=== PATIENT | male | born 1965 | race Two or more races ===

== ENCOUNTER 2018-11-14 09:39 | Emergency (ER) | payer OTHER ==
[~2018-11-14] VITALS: Ht 175.3 cm; Wt 74.3 kg
[2018-11-14] MEDS ORDERED: ROBITUSSIN AC (10:09)
[2018-11-14] MEDS ORDERED: OSEL75CA PO (10:09)
[2018-11-14 10:27] LABS: BASOPHILS # (AUTO) 0.03 x10^3/uL (0-0.1); BASOPHILS % (AUTO) 0 % (0-1); EOSINOPHILS # (AUTO) 0.02 x10^3/uL (0-0.4); EOSINOPHILS % (AUTO) 0 % (1-7); LYMPHOCYTES # (AUTO) 0.89 x10^3/uL (1-3.4); LYMPHOCYTES % (AUTO) 12 % (22-44); MD NO; MEAN CORPUSCULAR HEMOGLOBIN 29.1 pg (27.5-34.5); MEAN CORPUSCULAR HGB CONC 33.7 g/dL (33.2-36.2); MEAN CORPUSCULAR VOLUME 86.4 fL (81-97); MEAN PLATELET VOLUME 7.7 fL (7.4-10.4); MONOCYTES # (AUTO) 0.88 x10^3/uL (0.2-0.8); MONOCYTES % (AUTO) 12 % (2-9); NEUTROPHILS # (AUTO) 5.79 x10^3/uL (1.8-6.8); NEUTROPHILS % (AUTO) 76 % (42-75); PLATELET COUNT 209 x10^3/uL (130-400); RED BLOOD COUNT 5.23 x10^6/uL (4.38-5.82); RED CELL DISTRIBUTION WIDTH 13.5 % (9.4-14.8)
[2018-11-14] MEDS ORDERED: KETOROLAC 30 MG/1 ML IM ONE (10:30)
[2018-11-14 10:38] LABS: ALANINE AMINOTRANSFERASE 54 U/L (12-78); ALBUMIN 3.3 g/dL (3.4-5.0); ANION GAP 6 mmol/L (5-15); CALCIUM 8.5 mg/dL (8.5-10.1); CHLORIDE 101 mmol/L (98-107); CREATININE 0.87 mg/dL (0.7-1.3)
[2018-11-14 10:42] LABS: ALKALINE PHOSPHATASE 65 U/L (45-117); BILIRUBIN,TOTAL 1.2 mg/dL (0.2-1.0); TOTAL PROTEIN 7.2 g/dL (6.4-8.2); TROPONIN I < 0.015 ng/mL (0.000-0.045)
[2018-11-14] MEDS ORDERED: KETOROLAC 30 MG/1 ML ONE (10:43)
[2018-11-14] MEDS ORDERED: OMNIPAQUE 350 MG/ML, 100ML BOTTLE ONE (11:29)
[2018-11-14] MEDS ORDERED: SODIUM CHLORIDE FLUSH 10ML SYR IVF ONE (11:30)
--- NOTE | 2018-11-14 11:44 | NUR ---
CHART UP FOR MD RECHECK. PT AWARE.
[2018-11-14] MEDS ORDERED: CEFTRIAXONE PMX 1GM/50ML 50 ML ONE (11:47)
[2018-11-14] MEDS ORDERED: CEFTRIAXONE PMX 1GM/50ML 50 ML IVPB ONE (12:00)
[2018-11-14 12:13] VITALS: BP 103/73
== END 2018-11-14 12:17 | disposition home or self-care (01) ==
LOC: ED 10:30
DX: R07.89 Other chest pain (principal); J18.1 Lobar pneumonia, unspecified organism; R06.00 Dyspnea, unspecified
CPT/HCPCS: 36415; 71046; 71275; 80053; 84484; 85025; 85379; 93005; 96365; 96372; 99284; J0696; J1885; Q9967

== ENCOUNTER 2019-06-25 21:47 | Emergency (ER) | payer OTHER ==
[~2019-06-25] VITALS: Ht 177.8 cm; Wt 80.0 kg
[~2019-06-25 21:47] MED LIST: OSEL75CA26 PO; ROBITUSSIN AC
[2019-06-25 21:56] VITALS: BP 124/78
[2019-06-25] MEDS ORDERED: HYDROcodone/APAP 5/325 TABLET PO ONE (22:30)
[2019-06-25] MEDS ORDERED: HYDROcodone/APAP 5/325 TABLET ONE (22:31)
--- NOTE | 2019-06-25 22:35 | NUR ---
PT C/O RIGHT SIDE MOUTH DENTAL PAIN AND SWELLING STARTING YESTERDAY AND GOT WORSE TODAY. PAIN MEDS ADMIN PER OCT.
== END 2019-06-25 22:42 | disposition home or self-care (01) ==
LOC: ED 22:30
DX: K08.89 Other specified disorders of teeth and supporting structures (principal)
CPT/HCPCS: 99283

== ENCOUNTER 2019-10-27 23:11 | Emergency (ER) | payer OTHER ==
[~2019-10-27] VITALS: Ht 160 cm; Wt 79.3 kg
--- NOTE | 2019-10-27 23:30 | NUR ---
THIS IS A 54 YO M W/ C/O PAIN THAT RADIATES FROM LEFT CHEST TO THROAT, DOWN TO EPIGASTRIC AREA. PT REPORTS SOUR TASTE IN MOUTH. PT STATES THIS STARTED 2 DAYS AGO ALONG WITH DIAPHORESIS. VS STABLE, NADN. PT CONNECTED TO ALL MONITORING W/ CALL LIGHT IN REACH. IN ROOM FOR ED EVAL.
[2019-10-27] MEDS ORDERED: MAALOX/HYOSCYAMINE/LIDOCAINE 45 ML BTL ONE (23:37)
[2019-10-27] MEDS ORDERED: FAMOTIDINE 20 MG TABLET ONE (23:37)
[2019-10-27 23:40] VITALS: BP 125/81
--- NOTE | 2019-10-27 23:40 | NUR ---
PT MEDICATED PER EMAR. LAB IN ROOM.
[2019-10-27 23:53] LABS: BASOPHILS # (AUTO) 0.04 x10^3/uL (0-0.1); BASOPHILS % (AUTO) 1 % (0-1); EOSINOPHILS % (AUTO) 2 % (1-7); LYMPHOCYTES # (AUTO) 2.48 x10^3/uL (1-3.4); LYMPHOCYTES % (AUTO) 36 % (22-44); MD NO; MEAN CORPUSCULAR HEMOGLOBIN 29.6 pg (27.5-34.5); MEAN CORPUSCULAR HGB CONC 33.5 g/dL (33.2-36.2); MEAN CORPUSCULAR VOLUME 88.3 fL (81-97); MEAN PLATELET VOLUME 8.2 fL (7.4-10.4); MONOCYTES # (AUTO) 0.69 x10^3/uL (0.2-0.8); MONOCYTES % (AUTO) 10 % (2-9); NEUTROPHILS # (AUTO) 3.54 x10^3/uL (1.8-6.8); NEUTROPHILS % (AUTO) 52 % (42-75); PLATELET COUNT 226 x10^3/uL (130-400); RED BLOOD COUNT 5.69 x10^6/uL (4.38-5.82); RED CELL DISTRIBUTION WIDTH 13.8 % (9.4-14.8)
[2019-10-27 23:57] LABS: ALANINE AMINOTRANSFERASE 36 U/L (12-78); ALBUMIN 3.9 g/dL (3.4-5.0); ANION GAP 6 mmol/L (5-15); CALCIUM 9.2 mg/dL (8.5-10.1); CHLORIDE 106 mmol/L (98-107); CREATININE 1.01 mg/dL (0.7-1.3)
[2019-10-28] MEDS ORDERED: MAALOX/HYOSCYAMINE/LIDOCAINE 45 ML BTL PO ONE
[2019-10-28] MEDS ORDERED: FAMOTIDINE 20 MG TABLET PO ONE
--- NOTE | 2019-10-28 | NUR ---
PT REPORTS PAIN ALMOST GONE AFTER MEDS.
[2019-10-28 00:02] LABS: ALKALINE PHOSPHATASE 60 U/L (45-117); BILIRUBIN,TOTAL 0.3 mg/dL (0.2-1.0); TOTAL PROTEIN 7.4 g/dL (6.4-8.2); TROPONIN I < 0.015 ng/mL (0.000-0.045)
--- NOTE | 2019-10-28 00:50 | NUR ---
Patient given discharge instructions and they have confirmed that they understand the instructions. Patient ambulatory with steady gait.
== END 2019-10-28 00:51 | disposition home or self-care (01) ==
LOC: ED 23:41
DX: K21.0 Gastro-esophageal reflux disease with esophagitis (principal); R07.89 Other chest pain
CPT/HCPCS: 36415; 71045; 80053; 83690; 84484; 85025; 93005; 99285